=== PATIENT | female | born 1935 | race Caucasian/White ===

== ENCOUNTER 2018-03-21 12:37 | Emergency (ER) | payer MEDICARE ==
[2018-03-21 13:30] VITALS: BP 144/96
--- NOTE | 2018-03-21 13:46 | UC ---
Skin Complaint HPI - HPI Summary HPI Summary: Began scratching at the skin of her left wrist about a week ago, concerned that she has small white worms under her skin. This has resulted in diffuse abrasions around the left wrist and base of the first digit. In the last 24 hours has had increasing erythema and is more frequently digging at her skin. History of mild to moderate dementia; has been on donepezil for about a year. Denies pruritis. No meds applied. - History of Current Complaint Chief Complaint: UCSkin Time Seen by Provider: 03/21/18 13:21 Stated Complaint: SKIN COMPLAINT Hx Obtained From: Patient, Family/Patient Care Provider - here with her daughter and granddaughter. Onset/Duration: Gradual Onset, Lasting Days - 6-7 Skin Exposure Onset/Duration: Days Ago Onset Severity: Mild Current Severity: Moderate Pain Intensity: 0 Location: Diffuse - over left wrist and hand Character: Swelling, Redness, Painful Alleviating Factor(s): Nothing - Allergy/Home Medications Allergies/Adverse Reactions: Allergies Allergy/AdvReac Type Severity Reaction Status Date / Time codeine Allergy Hallucinati Verified 03/21/18 13:33 ons simvastatin Allergy Hallucinati Verified 03/21/18 13:33 ons Home Medications: Home Medications Colesevelam(NF) [Welchol(NF)] 1,975 mg PO BID 03/21/18 [History Confirmed ] Donepezil TAB* [Aricept 5 MG TAB*] 5 mg PO BEDTIME 03/21/18 [History Confirmed 03/21/18] Ezetimibe TAB* [Zetia TAB*] 10 mg PO BEDTIME 03/21/18 [History Confirmed ] Metoprolol Tartrate TAB* [Lopressor TAB*] 25 mg PO BEDTIME 03/21/18 [History Confirmed 03/21/18] Valsartan TAB* [Diovan TAB*] 80 mg PO BEDTIME 03/21/18 [History Confirmed ] Review of Systems Constitutional: Negative Skin: Rash - abraded areas left wrist and hand, right second digit. Eyes: Negative ENT: Negative Respiratory: Negative Cardiovascular: Negative - treated hypertenion, blood pressure and heart rate mildly elevated today. Gastrointestinal: Negative Genitourinary: Negative - has some urge incontinence. Motor: Negative Neurovascular: Negative Musculoskeletal: Negative Neurological: Other - history of dementia, still driving. No hx of sundowning and sleeps well. No prior hx of delusions of parasitosis Psychological: Other - dementia Is Patient Immunocompromised?: No All Other Systems Reviewed And Are Negative: Yes PMH/Surg Hx/FS Hx/Imm Hx Cardiovascular History: Hypertension Neurological History: Dementia - mild to moderate. - Surgical History Surgical History: Unable to Obtain/Confirm - Family History Known Family History: Positive: Unknown - Mother of "old age", cannot remeber cause of of father - Social History Occupation: Retired Lives: With Family - daughter and granddaughter. Alcohol Use: None Substance Use Type: None Smoking Status (MU): Never Smoked Tobacco Physical Exam Triage Information Reviewed: Yes Appearance: Well-Appearing - pleasant and co-operative, with poor recall of history and events., Obese Vital Signs: Initial Vital Signs Temp 98.1 F 03/21/18 13:21 Pulse 100 03/21/18 13:21 Resp 18 03/21/18 13:21 BP 144/96 03/21/18 13:21 Pulse Ox 97 03/21/18 13:21 Eyes: Positive: Conjunctiva Clear ENT: Positive: Pharynx normal Neck: Positive: Supple, Nontender, No Lymphadenopathy Respiratory: Positive: Lungs clear, Normal breath sounds Cardiovascular: Positive: RRR, No Murmur Musculoskeletal Exam: Normal Neurological: Positive: Alert, Muscle Tone Normal Psychological Exam: Other - cognitive defects apparent Skin: Positive: breakdown - diffuse excoriations across the dorsum of the left wrist and lateral border of hand. Diffuse erythema and swelling, mild tenderness over approx 8 x 8 cm area. No lymphangitis. --excoriated areas without erythema right second digit. Patient shows me the small white "worm" that she keeps finding and picking (flecks of dry skin) Course/Dx - Course Course Of Treatment: cephalexin for cellulitis; bactroban to have at home to apply to skin. Follow up with pmd essential re management of likely delusions of parasitosis. - Differential Diagnoses - Skin Complaint Differential Diagnoses: Cellulitis, Scabies - Diagnoses Provider Diagnoses: cellulitis left hand, secondary to self injury. 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 Discharge - Sign-Out/Discharge Documenting (check all that apply): Discharge/Admit/Transfer - Discharge Plan Condition: Stable Disposition: HOME Prescriptions: cephALEXin [Keflex] 500 mg PO TID #21 capsule Mupirocin 2% CREAM* [Bactroban 2% CREAM*] 1 applic TOPICAL BID #15 gm Patient Education Materials: Cellulitis (ED) Referrals: Lea Mcdonald MD [Primary Care Provider] - Additional Instructions: Take cephalexin to treat the soft tissue infection caused by the abrasions. Use a light application of mupirocin to open wounds on the skin 2 or 3 times daily to prevent infection. Follow up with your primary care doctor as arranged for next week to ensure good response and discuss treatment of possible delusions of parasitosis. If there is evidence of progressive redness and pain, or fever, please return for re-evaluation. - Billing Disposition and Condition Condition: STABLE Disposition: HOME
== END 2018-03-21 14:05 | disposition home or self-care (01) ==
LOC: UCCORT 12:37
DX: L03.114 Cellulitis of left upper limb (principal); B86 Scabies; Z88.5 Allergy status to narcotic agent; F03.90 Unspecified dementia, unspecified severity, without behavioral disturbance, psychotic disturbance, mood disturbance, and anxiety; Z88.8 Allergy status to other drugs, medicaments and biological substances; I10 Essential (primary) hypertension
CPT/HCPCS: 99212; G0463